=== PATIENT | female | born 1985 | race Caucasian/White ===

== ENCOUNTER 2018-12-18 16:55 | Observation (INO) | payer OTHER | END 2018-12-21 16:10 | disposition home or self-care (01) | LOC: ED 16:55 → DU 20:24 → ED 16:55 → DU 20:24 → ED 16:55 → DU 20:24 → ED 16:55 → DU 20:24 → ED 16:55 → DU 20:24 → ED 16:55 → DU 20:24 → ED 16:55 → DU 20:24 → ED 16:55 → DU 20:24 → ED 16:55 → DU 20:24 → ED 16:55 → DU 20:24 ==

== ENCOUNTER 2019-09-06 19:32 | Inpatient (IN) | payer OTHER ==
[~2019-09-06] VITALS: Ht 162.6 cm; Wt 65.1 kg
[~2019-09-06 19:32] MED LIST: COU5 PO; LOV40I SQ; OXYC PO; XARELTO15 M1 PO; XARELTO20 M1 PO
[2019-09-06 21:08] LABS: BASOPHIL % 0.1 % (0-2); PLATELET COUNT 194 x10^3mcL (130-400)
[2019-09-06 21:10] LABS: RED CELL DISTRIBUTION WIDTH 20.9 % (11.5-14.5)
[2019-09-06 21:29] LABS: ovalocyte/elliptocyte 1+; rbc morphology (normal/abnorm) ABNORMAL (NORMAL)
[2019-09-06 21:38] LABS: UA SPECIFIC GRAVITY 1.025 (1.005-1.035); microscopic required? YES; urine erythrocyte 3+ (NEGATIVE)
[2019-09-06 21:45] LABS: CK-MB < 0.5 ng/mL (0-3.6); CREATINE KINASE 29 U/L (26-192); FREE T4 1.35 ng/dL (0.76-1.46); FREE THYROXINE INDEX 3.2 ug/dL (1.4-4.5); T4(THYROXINE) 10.7 ug/dL (4.7-13.3)
[2019-09-06 21:52] LABS: ERYTHROCYTE SED RATE 61 mm/hr (0-20)
[2019-09-06 21:53] LABS: ALBUMIN 3.9 g/dL (3.4-5.0); ALKALINE PHOSPHATASE 96 U/L (46-116); ALT/SGPT 25 U/L (14-59); AST/SGOT 26 U/L (15-37); BILIRUBIN TOTAL 0.4 mg/dL (0.20-1.00); C REACTIVE PROTEIN 5.9 mg/dL (<=0.9); CALCIUM 10.6 mg/dL (8.5-10.1); CHLORIDE SERUM 102 mmol/L (98-107); CREATININE SERUM 0.8 mg/dL (0.6-1.0); GFR1 > 60 mL/min; GLUCOSE SERUM 94 mg/dL (74-106); POTASSIUM SERUM 3.2 mmol/L (3.5-5.1); SODIUM SERUM 139 mmol/L (136-145)
[2019-09-06 21:54] LABS: TOTAL PROTEIN, SERUM 9.2 g/dL (6.4-8.2)
[2019-09-06 22:01] LABS: T3 TOTAL 1.07 ng/mL
[2019-09-07] VITALS (7 sets, daily range): BP systolic 88–105; BP diastolic 47–61; Ht 162.6 cm; Wt 65.1 kg
[2019-09-07 11:41] LABS: BASOPHIL % 0.2 % (0-2); PLATELET COUNT 144 x10^3mcL (130-400)
[2019-09-07 11:55] LABS: RED CELL DISTRIBUTION WIDTH 20.6 % (11.5-14.5)
[2019-09-07 12:04] LABS: CALCIUM 9.3 mg/dL (8.5-10.1); CARBON DIOXIDE 26.1 mmol/L (21-32); CHLORIDE SERUM 107 mmol/L (98-107); CREATININE SERUM 0.8 mg/dL (0.6-1.0); GFR1 > 60 mL/min; GLUCOSE SERUM 86 mg/dL (74-106); POTASSIUM SERUM 3.8 mmol/L (3.5-5.1); SODIUM SERUM 140 mmol/L (136-145)
[2019-09-08 05:23] VITALS: BP 90/48
[2019-09-08 07:58] VITALS: BP 91/58
[2019-09-08] MEDS ORDERED: CLEOCIN HCL300 MG PO (13:39)
[2019-09-08] MEDS ORDERED: KEFLEX500 M1 PO (13:39)
[2019-09-08 14:14] VITALS: BP 91/58
== END 2019-09-08 16:24 | disposition home or self-care (01) | DRG 581 ==
LOC: ED 19:32 → MU 23:12
PROVIDERS: Specialist; ADMIT Internal Medicine
PROC: 0W9F0ZZ Drainage of Abdominal Wall, Open Approach (ICD-10-PCS; principal; 2019-09-06)
DX: L02.211 Cutaneous abscess of abdominal wall (principal); L03.311 Cellulitis of abdominal wall; Z86.718 Personal history of other venous thrombosis and embolism; Z79.01 Long term (current) use of anticoagulants; Z53.29 Procedure and treatment not carried out because of patient's decision for other reasons; Z68.24 Body mass index [BMI] 24.0-24.9, adult
CPT/HCPCS: 84439; G0378; J1170; J1200; J1650; J1885; J2001; J2270; J2405; J2543; J3490; J7030; Q0092; Q0163

== ENCOUNTER 2020-04-04 23:05 | Observation (INO) | payer OTHER ==
[~2020-04-04] VITALS: Ht 162.6 cm; Wt 57.2 kg
[~2020-04-04 23:05] MED LIST changes: +CLEOCIN HCL300 MG PO; +KEFLEX500 M1 PO
[2020-04-04 23:24] VITALS: Ht 162.6 cm; Wt 57.2 kg
[2020-04-05 00:53] LABS: CALCIUM 9.7 mg/dL (8.5-10.1); CARBON DIOXIDE 25.2 mmol/L (21-32); CHLORIDE SERUM 106 mmol/L (98-107); CREATININE SERUM 0.9 mg/dL (0.6-1.0); GFR1 > 60 mL/min; GLUCOSE SERUM 83 mg/dL (74-106); POTASSIUM SERUM 3.5 mmol/L (3.5-5.1); SODIUM SERUM 140 mmol/L (136-145)
[2020-04-05 00:54] LABS: BASOPHIL % 0.6 % (0-2); PLATELET COUNT 208 x10^3mcL (130-400)
[2020-04-05 00:56] LABS: RED CELL DISTRIBUTION WIDTH 22.6 % (11.5-14.5)
[2020-04-05 00:58] LABS: ALBUMIN 4.2 g/dL (3.4-5.0); ALKALINE PHOSPHATASE 82 U/L (46-116); ALT/SGPT 18 U/L (14-59); AST/SGOT 12 U/L (15-37); BILIRUBIN TOTAL 0.23 mg/dL (0.20-1.00); TOTAL PROTEIN, SERUM 8.3 g/dL (6.4-8.2)
[2020-04-05] MEDS ORDERED: COUMADIN1 MG PO (06:15)
[2020-04-05 12:27] LABS: BASOPHIL % 1.1 % (0-2); PLATELET COUNT 178 x10^3mcL (130-400)
[2020-04-05 12:37] LABS: RED CELL DISTRIBUTION WIDTH 23.8 % (11.5-14.5)
[2020-04-05 13:29] LABS: rbc morphology (normal/abnorm) ABNORMAL (NORMAL)
[2020-04-05 13:50] VITALS: BP 99/59
[2020-04-05 17:45] VITALS: BP 93/61
[2020-04-05 21:18] VITALS: BP 96/57
[2020-04-06 05:58] VITALS: BP 100/58
[2020-04-06 07:37] LABS: BASOPHIL % 0.3 % (0-2); PLATELET COUNT 167 x10^3mcL (130-400)
[2020-04-06 07:44] LABS: RED CELL DISTRIBUTION WIDTH 24.1 % (11.5-14.5)
[2020-04-06 08:08] LABS: CALCIUM 8.8 mg/dL (8.5-10.1); CARBON DIOXIDE 23.9 mmol/L (21-32); CHLORIDE SERUM 108 mmol/L (98-107); CREATININE SERUM 0.8 mg/dL (0.6-1.0); GFR1 > 60 mL/min; GLUCOSE SERUM 86 mg/dL (74-106); POTASSIUM SERUM 3.8 mmol/L (3.5-5.1); SODIUM SERUM 140 mmol/L (136-145)
[2020-04-06 08:31] VITALS: BP 90/49
[2020-04-06 09:19] LABS: rbc morphology (normal/abnorm) ABNORMAL (NORMAL)
== END 2020-04-06 14:25 | disposition home or self-care (01) ==
LOC: ED 23:05 → DU 04-05 04:00
PROVIDERS: Emergency Medicine; Internal Medicine Pulmonary Disease; ADMIT Hospitalist; ATTEND Hospitalist
DX: D50.0 Iron deficiency anemia secondary to blood loss (chronic) (principal); N93.9 Abnormal uterine and vaginal bleeding, unspecified; R10.9 Unspecified abdominal pain
CPT/HCPCS: 36430; G0378; J1200; J2270; J7050; P9016; Q0092; Q0163

== ENCOUNTER 2020-07-14 22:05 | Emergency (ER) | payer OTHER ==
[~2020-07-14] VITALS: Ht 162.6 cm; Wt 68.7 kg
[~2020-07-14 22:05] MED LIST changes: +COUMADIN1 MG PO
[2020-07-14 22:28] VITALS: Ht 162.6 cm; Wt 68.7 kg
[2020-07-14 23:45] LABS: UA SPECIFIC GRAVITY 1.025 (1.005-1.035); microscopic required? YES; urine erythrocyte TRACE (NEGATIVE)
[2020-07-15 01:39] LABS: CALCIUM 9.7 mg/dL (8.5-10.1); CARBON DIOXIDE 21.2 mmol/L (21-32); CHLORIDE SERUM 105 mmol/L (98-107); CREATININE SERUM 0.8 mg/dL (0.6-1.0); GFR1 > 60 mL/min; GLUCOSE SERUM 83 mg/dL (74-106); POTASSIUM SERUM 3.5 mmol/L (3.5-5.1); SODIUM SERUM 138 mmol/L (136-145)
[2020-07-15 01:43] LABS: ALBUMIN 3.8 g/dL (3.4-5.0); ALKALINE PHOSPHATASE 69 U/L (46-116); ALT/SGPT 17 U/L (14-59); AST/SGOT 17 U/L (15-37); BILIRUBIN TOTAL 0.28 mg/dL (0.20-1.00); TOTAL PROTEIN, SERUM 7.9 g/dL (6.4-8.2)
[2020-07-15 01:54] LABS: BASOPHIL % 0.5 % (0-2); PLATELET COUNT 262 x10^3mcL (130-400)
[2020-07-15 01:55] LABS: RED CELL DISTRIBUTION WIDTH 20.2 % (11.5-14.5); rbc morphology (normal/abnorm) ABNORMAL (NORMAL)
[2020-07-15 02:37] VITALS: BP 102/59
== END 2020-07-15 02:37 | disposition home or self-care (01) ==
LOC: ED 22:05
PROVIDERS: Student in an Organized Health Care Education/Training Program
DX: N12 Tubulo-interstitial nephritis, not specified as acute or chronic (principal); Z90.49 Acquired absence of other specified parts of digestive tract; Z98.890 Other specified postprocedural states; Z88.6 Allergy status to analgesic agent; Z88.5 Allergy status to narcotic agent
CPT/HCPCS: J1200; J2270; J7030